=== PATIENT | female | born 1985 | race Caucasian/White ===

== ENCOUNTER 2017-06-22 22:37 | Emergency (ER) | payer SELFPAY ==
--- NOTE | 2017-06-23 00:22 | XRay Report ---
FINAL REPORT PROCEDURE: XR CHEST ROUTINE 2V TECHNIQUE: PA and lateral chest radiographs were obtained. CPT 21043 HISTORY: Difficulty breathing COMPARISON: No prior studies are available for comparison. FINDINGS: Heart: Normal size.. Mediastinum/Vessels: Normal. Lungs/Pleural space: Clear.. Bony thorax: No acute osseous abnormality. Other: IMPRESSION: Negative examination.
[2017-06-23] MEDS ORDERED: TESSALON PERLES PO ONE (02:50)
[2017-06-23] MEDS ORDERED: BENADRYL PO ONE (02:50)
--- NOTE | 2017-06-23 02:54 | Emergency Department Report ---
- General Chief Complaint: Upper Respiratory Infection Stated Complaint: CHEST PAIN DIFFICULTY BREATHING Time Seen by Provider: 06/23/17 02:48 Source: patient Mode of arrival: Ambulatory Limitations: No Limitations - History of Present Illness Initial Comments: 32-year-old female comes in complaining of chest pain, coughing, runny nose, shortness of breathing 2 days, sore throat that itches as well as ears itching and sneezing. Patient reports that she vomited 2 yesterday. She also complains of constipation last BM 5 days now having epigastric abdominal pain. She admits to runny nose chest pain worse with cough. No past medical history currently no medications on a daily basis and has no known drug allergies. MD Complaint: fever (MAXIMUM TEMPERATURE 100) -: days(s) (2) Severity scale (0 -10): 10 Improves With: nothing Worsens With: nothing Associated Symptoms: fever, rhinorrhea, nasal congestion, cough, chest pain ( left upper chest and no radiation), shortness of breath, abdominal pain ( epigastric), hoarseness Treatments Prior to Arrival: "cold medicine" (Robitussin times one dose) - Related Data Previous Rx's Medication Instructions Recorded Last Taken Type Benzonatate [Tessalon Perle] 100 mg PO TID PRN #30 capsule 06/23/17 Unknown Rx Cetirizine HCl [Zyrtec] 10 mg PO QDAY #30 tablet 06/23/17 Unknown Rx Polyethylene Glycol 3350 [Miralax 17 gm PO BID #1 box 06/23/17 Unknown Rx 3350] Allergies Allergy/AdvReac Type Severity Reaction Status Date / Time No Known Allergies Allergy Verified 04/08/14 02:58 ED Review of Systems ROS: Stated complaint: CHEST PAIN DIFFICULTY BREATHING Other details as noted in HPI ENT: throat pain, congestion, other (rhinorrhea, sneezing, itchy ears itchy throat) Respiratory: cough, shortness of breath. denies: wheezing Cardiovascular: chest pain Endocrine: no symptoms reported Gastrointestinal: abdominal pain (epigastric), constipation (5 days) Genitourinary: denies: urgency, dysuria, discharge Musculoskeletal: denies: back pain, joint swelling, arthralgia Skin: denies: rash, lesions Neurological: denies: headache, weakness, paresthesias Psychiatric: denies: anxiety, depression Hematological/Lymphatic: denies: easy bleeding, easy bruising ED Past Medical Hx - Past Medical History Previous Medical History?: No - Surgical History Past Surgical History?: No - Social History Smoking Status: Never Smoker Substance Use Type: None - Medications Home Medications: Home Medications Medication Instructions Recorded Confirmed Last Taken Type Benzonatate [Tessalon Perle] 100 mg PO TID PRN #30 capsule 06/23/17 Unknown Rx Cetirizine HCl [Zyrtec] 10 mg PO QDAY #30 tablet 06/23/17 Unknown Rx Polyethylene Glycol 3350 [Miralax 17 gm PO BID #1 box 06/23/17 Unknown Rx 3350] ED Physical Exam - General Limitations: No Limitations General appearance: alert, in no apparent distress - Head Head exam: Present: atraumatic, normocephalic - Eye Eye exam: Present: normal appearance - ENT ENT exam: Present: mucous membranes moist - Neck Neck exam: Present: normal inspection - Respiratory Respiratory exam: Present: normal lung sounds bilaterally, chest wall tenderness (left upper chest) - Cardiovascular Cardiovascular Exam: Present: regular rate, normal rhythm. Absent: systolic murmur, diastolic murmur, rubs, gallop - GI/Abdominal GI/Abdominal exam: Present: soft, tenderness (epigastric left lower quadrant), normal bowel sounds - Extremities Exam Extremities exam: Present: normal inspection - Neurological Exam Neurological exam: Present: alert, oriented X3 - Psychiatric Psychiatric exam: Present: normal affect, normal mood ED Course Vital Signs 06/22/17 23:05 Temperature 98.5 F Pulse Rate 86 Respiratory 20 Rate Blood Pressure 114/78 O2 Sat by Pulse 100 Oximetry ED Medical Decision Making - Radiology Data Radiology results: report reviewed, image reviewed FINDINGS: There is a nonspecific bowel gas pattern, with no abnormal bowel dilatation to suggest intestinal obstruction. No free air or air-fluid levels are seen on the erect film. There is mild-moderate residual stool in the colon, primarily in the ascending and descending portions. There is no osseous abnormality. No abnormal soft tissue calcifications are noted. IMPRESSION: No intestinal obstruction or free air. Mild-moderate residual stool in the colon, in keeping with mild constipation. Transcribed By: AMANDA Dictated By: OTF GURROLA MD Electronically Authenticated By: OTF GURROLA MD Signed Date/Time: 06/23/17333 DD/ 3 TD/TT: 06/23/17333 FINAL REPORT PROCEDURE: XR CHEST ROUTINE 2V TECHNIQUE: PA and lateral chest radiographs were obtained. CPT 31986 HISTORY: Difficulty breathing COMPARISON: No prior studies are available for comparison. FINDINGS: Heart: Normal size.. Mediastinum/Vessels: Normal. Lungs/Pleural space: Clear.. Bony thorax: No acute osseous abnormality. Other: IMPRESSION: Negative examination. Transcribed By: DFN Dictated By: JENN MARINO MD Electronically Authenticated By: JENN MARINO MD Signed Date/Time: 06/23/1717 DD/ TD/TT: 06/23/1717 - Medical Decision Making Since been evaluated by this provider [place]. Chest x-ray and KUB was ordered shows some mild stool retained consistent with mild constipation. Patient given Tessalon Perles for cough Benadryl for allergies. Will discharge patient on Zyrtec and Tessalon Perles. Patient can start on MiraLAX 1 package by mouth daily. Patient is to follow with her primary care provider. Critical care attestation.: If time is entered above; I have spent that time in minutes in the direct care of this critically ill patient, excluding procedure time. ED Disposition Clinical Impression: Chest wall tenderness Constipation Qualifiers: Constipation type: slow transit constipation Qualified Code(s): K59.01 - Slow transit constipation Allergic rhinitis Qualifiers: Allergic rhinitis trigger: unspecified Allergic rhinitis seasonality: seasonal Qualified Code(s): J30.2 - Other seasonal allergic rhinitis Disposition: -01 TO HOME OR SELFCARE Is pt being admited?: No Does the pt Need Aspirin: No Condition: Stable Instructions: Chest Pain (ED) Additional Instructions: Please take medication as prescribed. Increase your fiber intake. Increase her water intake. If symptoms persist or gets worse please follow-up with your primary care Prescriptions: Benzonatate [Tessalon Perle] 100 mg PO TID PRN #30 capsule PRN Reason: Cough Cetirizine HCl [Zyrtec] 10 mg PO QDAY #30 tablet Polyethylene Glycol 3350 [Miralax 3350] 17 gm PO BID #1 box Referrals: PRIMARY CAREMD [Primary Care Provider] - 3-[address] [facility] [Provider Group] - 3-5 Days Forms: Accompanied Note, Work/School Release Form(ED)
--- NOTE | 2017-06-23 03:38 | XRay Report ---
FINAL REPORT EXAM: XR ABDOMEN 2V HISTORY: Abdominal pain (epigastric) and constipation/?5 days. TECHNIQUE: Supine and erect frontal radiographs of the abdomen were obtained. No prior studies are available for comparison. FINDINGS: There is a nonspecific bowel gas pattern, with no abnormal bowel dilatation to suggest intestinal obstruction. No free air or air-fluid levels are seen on the erect film. There is mild-moderate residual stool in the colon, primarily in the ascending and descending portions. There is no osseous abnormality. No abnormal soft tissue calcifications are noted. IMPRESSION: No intestinal obstruction or free air. Mild-moderate residual stool in the colon, in keeping with mild constipation.
[2017-06-23 04:24] VITALS: BP 112/74
== END 2017-06-23 04:26 | disposition home or self-care (01) ==
LOC: ED 22:37
DX: J30.9 Allergic rhinitis, unspecified (principal); K59.00 Constipation, unspecified
CPT/HCPCS: 71046; 74019; 93005; 93010; 99283